=== PATIENT | female | born 1965 | race Caucasian/White ===

== ENCOUNTER → 2018-03-30 16:49 | Outpatient (CLI) | payer BC | END | disposition home or self-care (01) | LOC: D.MAMMO 15:15 | DX: Z12.31 Encounter for screening mammogram for malignant neoplasm of breast (principal) ==

== ENCOUNTER → 2019-03-28 10:00 | Outpatient (CLI) | payer BC | END | disposition home or self-care (01) | LOC: D.MAMMO 01-19 09:15 | PROVIDERS: ATTEND Family Medicine | DX: Z12.31 Encounter for screening mammogram for malignant neoplasm of breast (principal) ==

== ENCOUNTER → 2019-04-24 19:41 | Outpatient (CLI) | payer BC | END | disposition home or self-care (01) | LOC: D.LABREF 19:41 | PROVIDERS: ATTEND Urology | DX: R82.90 Unspecified abnormal findings in urine (principal); R31.9 Hematuria, unspecified ==

== ENCOUNTER 2019-06-06 06:15 | Day surgery (SDC) | payer BC ==
[~2019-06-06] VITALS: Ht 167.6 cm; Wt 73.5 kg
[~2019-06-06 06:15] MED LIST: AMOXICILLIN875 MG PO; BAYER CHEWABLE81 MG; CALCIUM 250+D T1 TAB PO; CYMBALTA20 MG PO; GLUCOPHAGE1000 MG PO; LARISSIA-28 TA1 EACH PO; MULTI-DAY VITAM1 TAB PO; PRAVACHOL20 MG PO; PREVACID15 MG PO
[2019-06-06 06:33] LABS: HEMATOCRIT 36.2 % (36.0-48.0); HEMOGLOBIN 11.3 g/dL (12-16); MCH 28.5 pg (26.0-34.0); MCHC 31.2 g/dL (31.0-37.0); MCV 91.2 fL (80.0-100.0); MEAN PLATELET VOLUME 8.8 fL (7.4-10.4); RBC 3.97 10x6/uL (4.00-5.40); RDW 15.1 % (11.5-14.5)
[2019-06-06 06:50] LABS: ANION GAP 13.1 mmol/L (8-16); CALCIUM 8.8 mg/dL (8.5-10.1); CARBON DIOXIDE 26.1 mmol/L (21.0-32.0); CREATININE - SERUM 0.9 mg/dL (0.6-1.3); POTASSIUM - SERUM 4.2 mmol/L (3.5-5.1)
[2019-06-06] MEDS ORDERED: OMEPRAZOLE20 M1 PO (07:11)
[2019-06-06] MEDS ORDERED: OSTEO BI-FLEX1 EAC1 PO (07:12)
[2019-06-06] MEDS ORDERED: COLACE100 MG PO (07:12)
[2019-06-06] MEDS ORDERED: KRILL OIL 1,001 EAC1 PO (07:13)
[2019-06-06 07:15] VITALS: BP 124/76; Ht 167.6 cm; Wt 73.5 kg
[2019-06-06 07:29] LABS: HCG URINE NEGATIVE (NEGATIVE)
--- NOTE | 2019-06-06 13:19 | OP ---
PATIENT NAME: ABELARDO NESS MEDICAL RECORD: [id number] :67 LOCATION:D.OPS ADMISSION DATE: SURGEON: ADRIÁN JOHNS MD DATE OF OPERATION: 06/06/2019 SURGEON: Adrián Johns MD ANESTHESIA: TIVA by Shyann Cotto CRNA. DIAGNOSIS: Microscopic hematuria. PROCEDURE: Cystoscopy and hydrodistention of the bladder. FINDINGS: Single ureteral orifices bilaterally. No bladder tumors. Diffusely inflamed bladder. BLOOD LOSS: None. CLINICAL HISTORY: This is a 53-year-old female, who has microscopic hematuria. Her urine cytology was normal. Her urine culture had mixed contamination. CT scan of the abdomen and pelvis was normal. She now comes to have cystoscopy done to complete the hematuria workup. She is not allergic to any antibiotics. She was given ampicillin and sulbactam IV seph[facility] operations consultant to the OR. DESCRIPTION OF PROCEDURE: The patient was given IV sedation. She was then placed into dorsal lithotomy position. A 17-Mohawk cystoscope was used for visualization. No bladder tumors were seen. She did have diffuse bladder inflammation. I decided to proceed with hydrodistention in case she has some degree of interstitial cystitis. The bladder was instilled to about 600 mL and then the fluid was drained out of the bladder using the scope sheath. The scope was then removed. I will see the patient in followup on a p.r.n. basis. TRANSINT:[id number] Voice Confirmation ID: [id number] DOCUMENT ID: [id number] ADRIÁN JOHNS MD at 1319 CC: [id number] DICTATION DATE: 06/06/19 1036 PEST MANAGEMENT SUPERVISOR: 06/06/19 1251 [facility] [address] [id number]
--- NOTE | 2019-06-06 14:05 | NUR ---
1127 DC'D HOME. TAKEN OUT VIA W/C AND ASSISTED TO CAR WITH FAMILY. ADVISED TO CALL OR COME BACK IF ANY PROBLEMS.
== END 2019-06-06 11:27 | disposition home or self-care (01) ==
LOC: D.OPS 06:15 → D.PAN 11:30 → D.OPS 11:30
PROVIDERS: Anesthesiology; ATTEND Urology
DX: R31.21 Asymptomatic microscopic hematuria (principal); E78.00 Pure hypercholesterolemia, unspecified; E11.9 Type 2 diabetes mellitus without complications; Z79.84 Long term (current) use of oral hypoglycemic drugs